=== PATIENT | female | born 1955 | race Caucasian/White ===

== ENCOUNTER 2024-02-23 11:55 | Emergency (ER) | payer OTHER, SELFPAY ==
[2024-02-23 11:58] VITALS: BP 146/74
[2024-02-23] MEDS: DUONEB 9 ML INH (13:22)
[2024-02-23] MEDS: DELTASONE 60 MG PO (13:22)
--- NOTE | 2024-02-23 14:47 | ED.GENMED ---
History of Present Illness
General
Chief Complaint: Breathing Problem
Time Seen by Provider: 02/23/24 12:46
History of Present Illness
History of Present Illness:
68-year-old female with history of COPD and history of psychosis presenting to the emergency department for difficulty breathing. Patient reports symptoms have been ongoing for several months. Denies any cough or fever. Denies any lower extremity
swelling. Denies any chest pain. She has been taking her inhaler. Denies any history of intubations. Denies additional acute medical complaints
Past History
Past History
ED Past Medical History: COPD and HTN
ED Past Surgical History: None
Social History
Tobacco: Smoker
Phy Exam
Physical Exam
Physical Exam:
General: Well-appearing, no clinical signs of dehydration, nontoxic and in no acute distress
HEENT: protecting airway
Neck: appears supple
CV: Normal heart rate, regular rhythm
Resp: No accessory muscle use, no increased work of breathing, lungs clear to auscultation bilaterally
Abd: Soft and non-distended, no tenderness to palpation, normal bowel sounds
Extremities: No deformities, no swelling, no erythema
Neuro: alert, no focal neurologic deficit
: deferred
Rectal: deferred
Psych: Normal affect
Skin: Intact
Scores
Heart Failure Risk
Heart Failure Risk Score: Not Applicable
Course
Orders/Labs/Results
Orders:
Orders
02/23/24 12:02
Electrocardiogram (*1) Urgent
Reason for Study: Shortness of Breath
EKG- Treatment ONCE
02/23/24 13:16
Ipratropium/Albuterol Sulfate [Duoneb] 9 ml INH R NOW ONE
Prednisone [Deltasone] 60 mg PO NOW STA
CR Chest - 2 Views Urgent
Comment:
Reason For Exam: sob
Vital Signs
Initial and Last Documented VS:
Initial Vital Signs
Temp Pulse Resp BP Pulse Ox
98.2 F 73 21 146/74 98
02/23/24 11:58 02/23/24 11:58 02/23/24 11:58 02/23/24 11:58 02/23/24 11:58
Last Documented Vital Signs
Temp Pulse Resp BP Pulse Ox
98.2 F 67 20 140/72 99
02/23/24 11:58 02/23/24 15:01 02/23/24 15:01 02/23/24 15:01 02/23/24 15:01
MDM/Problems Addressed
MDM/Problems Addressed:
68-year-old female with history of COPD and psychosis presenting for shortness of breath for several months. Vital signs on arrival are normal.
On exam patient is well-appearing, no increased work of breathing. She does have odor of tobacco, however denies active smoking. Suspect COPD as etiology of patient's symptoms. However lung exam is relatively benign, without significant wheezing,
moving adequate air. Possible bronchitis component. Lower suspicion for infectious pathology given duration of symptoms afebrile. Lower PE, reports compliance with her anticoagulation, normal heart rate, normal oxygenation. Will treat with
DuoNebs and steroids and reassess. Will chest x-ray imaging.
15:00- Chest x-ray without acute cardiopulmonary disease. On reassessment, remains hemodynamically stable, again normal oxygenation. Feel stable for just with close and for follow-up with rubberizing mechanic. Will start on steroid pack. Strict return
precautions communicated and patient verbalized understanding
*EKG
Interpreted by ED Provider?: Yes
EKG Intrepretation Date: 02/23/24
EKG Intrepretation Time: 14:49
Interpretation: normal
Comparison EKG: no changes
Heart Rate: 61
Rate: normal
Rhythm: sinus
[place]: normal axis
Interval: normal interval
QRS Pattern: normal QRS
Ischemia: no ischemia
*Critical Care Note
Total Time (30-74mins, 75-104mins- exclusive of procedures): Not Applicable
ED Attending Note
-
Portions of this chart may have been created with voice recognition software.� Occasional wrong word or��sound alike� substitutions may have occurred due to the inherent limitations of voice recognition software.
Discharge Plan
Departure
Patient Disposition: Home (Routine Discharge)
Date of Disposition: 02/23/24
Time of Disposition: 14:54
Patient with high blood pressure during this ER visit?: No
Condition: Good
Discharge Problem:
COPD (chronic obstructive pulmonary disease) with emphysema
Instructions: Shortness of Breath (Dyspnea) (DC), Exacerbation of COPD (DC)
Prescriptions:
New
prednisone 20 mg tablet
40 mg PO DAILY 4 Days Qty: 8 0RF
No Action
acetaminophen 325 MG tablet
650 mg PO Q4HPRN PRN (Reason: mild pain/BARTHOLOMEW/temp> 100.4F) 0RF
lisinopril 20 MG tablet
20 mg PO DAILY 0RF
olanzapine 10 MG tablet
10 mg PO HS 0RF
amlodipine 5 MG tablet
5 mg PO DAILY 0RF
olanzapine 2.5 MG tablet
2.5 mg PO Q6HPRN PRN (Reason: agitation) 0RF
rivaroxaban [Xarelto] 15 MG tablet
15 mg PO BID 0RF
Referrals:
Jesus Kaba MD [Family Provider] -
Activity Restrictions/Additional Instructions:
You were seen in the emergency department for shortness of breath
You were found to have emphysema, which is known to you. You were started on a steroid
Please follow-up closely with your primary care physician.
Return to the emergency department for any worsening of your symptoms, or any development of chest pain, difficulty breathing, abdominal pain with persistent vomiting and inability to tolerate food or liquid by mouth (concern for dehydration),
weakness, headache or confusion, fever greater than 100.4, or any additional symptoms that are concerning to you.
Thank you for choosing [facility].
Interventions
Interventions:
*Risk Screen - Suicide Last Done: 02/23/24 12:24
*General Assessment Last Done: 02/23/24 12:24
*Neglect/Abuse Screening Last Done: 02/23/24 12:24
ED- Fall Risk Assessment Last Done: 02/23/24 12:24
*Nursing Disposition Last Done: 02/23/24 15:02
ED- Cardiac Assessment Last Done: 02/23/24 12:24
ED- Pulmonary Assessment Last Done: 02/23/24 12:24
Discharge Date and Time
Print Language: GIBRALTARIAN
[2024-02-23 15:01] VITALS: BP 140/72
== END 2024-02-23 15:50 | disposition home or self-care (01) ==
LOC: EMR 11:55
PROVIDERS: EMERGENCY PHYSICIAN Student in an Organized Health Care Education/Training Program; FAMILY PHYSICIAN Internal Medicine
DX: J44.9 Chronic obstructive pulmonary disease, unspecified (principal); J43.9 Emphysema, unspecified; F17.200 Nicotine dependence, unspecified, uncomplicated
CPT/HCPCS: 99284; 94640; 71046; 93005

== ENCOUNTER 2024-04-03 12:26 | Emergency (ER) | payer MEDICARE, SELFPAY ==
[2024-04-03 12:32] VITALS: BP 129/71; BMI 25.8
[2024-04-03 12:55] LABS: % Basophils 0.5 % (0-2); % Immature Granulocytes 0.5 % (0-0.5); % Monocytes 7.4 % (1.7-9.3); % Neutrophils 62.6 % (42.2-75.2); Absolute Eosinophils 0.2 10^3/uL (0-0.7); Absolute Lymphocytes 2.1 10^3/uL (1.2-3.4); Absolute Monocytes 0.6 10^3/uL (0.1-0.6); Absolute Neutrophils 4.7 10^3/uL (1.4-6.5); Hematocrit 44.3 % (37.0-47.0); Hemoglobin 14.8 g/dL (12.0-16.0); Mean Corp Hgb Conc. 33.4 g/dL (33.0-37.0); Mean Corpuscular Hgb 27.4 pg (27.0-31.0); Mean Corpuscular Volume 81.9 fL (81.0-99.0); Mean Platelet Volume 12.2 fL (7.4-10.4); Nucleated Red Blood Cells % 0 %; Platelet Count 248 10^3/uL (130-400); Red Blood Cell Count 5.41 10^6/uL (4.20-5.40); Red Cell Dist. Width 14.6 % (11.5-14.5); White Blood Cell Count 7.6 10^3/uL (4.8-10.8)
[2024-04-03 13:07] LABS: ALT (SGPT) 25 U/L (0-35); AST (SGOT) 21 U/L (14-36); Albumin 4.9 g/dl (3.5-5.0); Alkaline Phosphatase 135 U/L (38-126); Blood Urea Nitrogen 14 mg/dl (7-17); Calcium 10.3 mg/dl (8.4-10.2); Carbon Dioxide 23 mmol/L (22-30); Chloride 102 mmol/L (98-107); Estimated Creatinine Clearance 48 ml/min; Glucose 129 mg/dl (70-99); Potassium 4.4 mmol/L (3.5-5.1); Sodium 138 mmol/L (135-145); Total Bilirubin 0.8 mg/dl (0.2-1.3); Total Protein 7.5 g/dl (6.3-8.2); eGFR > 60.00
[2024-04-03 13:19] LABS: Troponin I < 0.012 ng/ml
[2024-04-03 13:25] VITALS: BP 136/64
[2024-04-03 14:00] VITALS: BP 120/72
--- NOTE | 2024-04-03 15:09 | ED.GENMED ---
History of Present Illness
General
Chief Complaint: Breathing Problem
Source: patient
Exam Limitations: none
Time Seen by Provider: 04/03/24 14:55
History of Present Illness
History of Present Illness:
68-year-old female with history of COPD, pulmonary embolism on Xarelto presents with chest pain and shortness of breath onset last night. She has not missed any doses of her Xarelto. The discomfort is sharp in nature to the center of her chest not
pleuritic. She does note associated shortness of breath. No leg swelling or calf pain. She denies a cough. No other complaints at this time. She has a history of anxiety and ran out of her Ativan 2 weeks ago.
Past History
Past History
ED Past Medical History: COPD and HTN
ED Past Surgical History: None
Social History
Tobacco: Smoker
Phy Exam
Physical Exam
Physical Exam:
General: Well-appearing female no acute respiratory distress
HEENT: Normocephalic atraumatic
Heart: Regular rate and rhythm
Lungs: Clear no obvious wheeze or rales
Abdomen: Soft nontender nondistended no guarding rebound normal bowel sounds
Extremities: No cyanosis or edema.
Skin is warm no rash
Scores
Heart Failure Risk
Heart Failure Risk Score: Not Applicable
Course
Orders/Labs/Results
Orders:
Orders
04/03/24 12:31
Electrocardiogram (*1) Urgent
Reason for Study: Shortness of Breath
EKG- Treatment ONCE
04/03/24 12:45
Complete Blood Count/With Diff Urgent
Comprehensive Metabolic Panel Urgent
Troponin I Urgent
04/03/24 12:46
Chest [CR Chest - 2 Views ] Urgent
Comment:
Reason For Exam: sob
04/03/24 15:04
Ipratropium/Albuterol Sulfate [Duoneb] 3 ml INH R NOW ONE
Lorazepam [Ativan] 1 mg PO NOW STA
Abnormal Lab Results
04/03/24
12:45
RBC 5.41 H 10^6/uL
(4.20-5.40)
RDW 14.6 H %
(11.5-14.5)
MPV 12.2 H fL
(7.4-10.4)
Glucose 129 H mg/dl
(70-99)
Calcium 10.3 H mg/dl
(8.4-10.2)
Alkaline Phosphatase 135 H U/L
(38-126)
04/03/24 12:45
04/03/24 12:45
Vital Signs
Initial and Last Documented VS:
Initial Vital Signs
Pulse Resp BP Pulse Ox
61 18 129/71 98
04/03/24 12:32 04/03/24 12:32 04/03/24 12:32 04/03/24 12:32
Last Documented Vital Signs
Temp Pulse Resp BP Pulse Ox
98.7 F 75 18 145/68 98
04/03/24 16:22 04/03/24 16:22 04/03/24 16:22 04/03/24 16:22 04/03/24 16:22
MDM/Problems Addressed
Differential Diagnosis Includes:
Chest pain or shortness of breath. Consider ACS. Unlikely to be PE secondary to anticoagulated state. Vital signs are stable. Patient does appear anxious on exam. Of note patient ran out of her Ativan. She has a history of COPD as well.
Consider COPD flare. Will try DuoNeb check labs and x-ray. EKG shows sinus rhythm without ischemic changes.
*Critical Care Note
Total Time (30-74mins, 75-104mins- exclusive of procedures): Not Applicable
Update Note
Update Note:
Patient feeling better after breathing treatment and Ativan here. I suspect anxiety coupled with COPD. No evidence to suggest ACS. She is anticoagulated and likely does not have a PE. Patient request to go home. She is stable. Advise she
continue her breathing treatments at home
ED Attending Note
-
Portions of this chart may have been created with voice recognition software.� Occasional wrong word or��sound alike� substitutions may have occurred due to the inherent limitations of voice recognition software.
Discharge Plan
Departure
Patient Disposition: Home (Routine Discharge)
Date of Disposition: 04/03/24
Time of Disposition: 16:28
Patient with high blood pressure during this ER visit?: No
Discharge Problem:
Breath shortness
Instructions: Exacerbation of COPD (DC)
Prescriptions:
New
prednisone 20 mg tablet
40 mg PO DAILY 5 Days Qty: 10 0RF
No Action
acetaminophen 325 MG tablet
650 mg PO Q4HPRN PRN (Reason: mild pain/BARTHOLOMEW/temp> 100.4F) 0RF
lisinopril 20 MG tablet
20 mg PO DAILY 0RF
olanzapine 10 MG tablet
10 mg PO HS 0RF
amlodipine 5 MG tablet
5 mg PO DAILY 0RF
olanzapine 2.5 MG tablet
2.5 mg PO Q6HPRN PRN (Reason: agitation) 0RF
rivaroxaban [Xarelto] 15 MG tablet
15 mg PO BID 0RF
prednisone 20 mg tablet
40 mg PO DAILY 4 Days Qty: 8 0RF
Referrals:
Jesus Kaba MD [Family Provider] -
Activity Restrictions/Additional Instructions:
Continue with breathing treatments. Use steroid as directed. Return if worse otherwise follow-up with your doctor
Interventions
Interventions:
*Risk Screen - Suicide Last Done: 04/03/24 12:32
*General Assessment Last Done: 04/03/24 12:32
*Neglect/Abuse Screening Last Done: 04/03/24 12:32
*ED COVID-19 Vaccine History Last Done: 04/03/24 12:32
ED- Cardiac Assessment Last Done: 04/03/24 12:32
ED- Pulmonary Assessment Last Done: 04/03/24 12:32
Discharge Date and Time
Print Language: SYRIAN
[2024-04-03] MEDS: DUONEB 3 ML INH (15:20)
[2024-04-03] MEDS: ATIVAN 1 MG PO (15:21)
[2024-04-03 16:22] VITALS: BP 145/68
== END 2024-04-03 16:46 | disposition home or self-care (01) ==
LOC: EMR 12:26
PROVIDERS: Emergency Medicine; EMERGENCY PHYSICIAN Emergency Medicine; FAMILY PHYSICIAN Internal Medicine
DX: R07.89 Other chest pain (principal); R06.02 Shortness of breath; J44.9 Chronic obstructive pulmonary disease, unspecified; F41.9 Anxiety disorder, unspecified; I10 Essential (primary) hypertension; F17.200 Nicotine dependence, unspecified, uncomplicated; Z79.01 Long term (current) use of anticoagulants; Z86.711 Personal history of pulmonary embolism
CPT/HCPCS: 99283; 94640; 71046; 80053; 84484; 85025; 93005

== ENCOUNTER 2024-05-16 07:07 | Emergency (ER) | payer MEDICARE, SELFPAY ==
[2024-05-16 07:11] VITALS: BP 152/69; BMI 23.1
[2024-05-16 07:30] VITALS: BP 128/78
[2024-05-16] MEDS: DECADRON 10 MG IV (07:36)
[2024-05-16] MEDS: DUONEB 3 ML INH (07:36)
[2024-05-16 07:40] LABS: % Basophils 0.5 % (0-2); % Eosinophils 1.7 % (0-6); % Immature Granulocytes 0.4 % (0-0.5); % Lymphocytes 27.5 % (20.5-51.1); % Monocytes 8.8 % (1.7-9.3); % Neutrophils 61.1 % (42.2-75.2); Absolute Eosinophils 0.1 10^3/uL (0-0.7); Absolute Lymphocytes 2.2 10^3/uL (1.2-3.4); Absolute Monocytes 0.7 10^3/uL (0.1-0.6); Absolute Neutrophils 4.9 10^3/uL (1.4-6.5); Hematocrit 43.9 % (37.0-47.0); Hemoglobin 14.6 g/dL (12.0-16.0); Mean Corp Hgb Conc. 33.3 g/dL (33.0-37.0); Mean Corpuscular Hgb 27.4 pg (27.0-31.0); Mean Corpuscular Volume 82.5 fL (81.0-99.0); Mean Platelet Volume 12.4 fL (7.4-10.4); Nucleated Red Blood Cells % 0 %; Platelet Count 162 10^3/uL (130-400); Red Blood Cell Count 5.32 10^6/uL (4.20-5.40); Red Cell Dist. Width 14.4 % (11.5-14.5); White Blood Cell Count 8.1 10^3/uL (4.8-10.8)
--- NOTE | 2024-05-16 07:43 | ED.GENMED ---
History of Present Illness
General
Chief Complaint: Breathing Problem
Source: patient
Exam Limitations: none
Time Seen by Provider: 05/16/24 07:09
Nursing documentation reviewed up to this point in time: agreed with
History of Present Illness
History of Present Illness:
68-year-old female past medical history of COPD previous PE currently anticoagulated, hypertension hyperlipidemia presenting to the emergency department today with concerns chest pain shortness of breath that started this morning upon awakening.
She has missed some doses of Xarelto in the past missed a dose last night as well. She took a baby aspirin via EMS en route. Denies any nausea vomiting fevers or recent illness.
Past History
Past History
ED Past Medical History: COPD and HTN
ED Past Surgical History: None
Social History
Tobacco: Smoker
Review of Systems
Review of Systems
Allergies reviewed?: Yes
All Other Systems: ROS reviewed and negative except as documented in HPI and ROS
Phy Exam
Physical Exam
Physical Exam:
GENERAL: Alert , in no apparent distress
EYE: pupils equal and reactive
NECK: Supple, no significant adenopathy.
ENT: o/p clr, mmm.
CARDIAC: Regular rate and rhythm .
LUNGS: End expiratory wheeze with forced exhalation clear breath sounds bilaterally, no acute respiratory distress,
ABDOMEN: Soft, without focal tenderness, no r/g, no cvat
NEUROLOGICAL: Alert and oriented, no focal neuro deficits
SKIN: Warm and dry, skin intact.
MUSCULOSKELETAL: No edema, well perfused.
PSYCH: Normal and appropriate interaction.
Scores
Heart Failure Risk
Heart Failure Risk Score: Not Applicable
Course
Orders/Labs/Results
Orders:
Orders
05/16/24 07:08
Electrocardiogram (*1) Urgent
Reason for Study: Other
Other Reason for Exam: Respiratory Distress
EKG- Treatment ONCE
CR Chest - 2 Views Urgent
Comment:
Reason For Exam: respiratory distress
05/16/24 07:26
Basic Metabolic Panel Urgent
COVID-19 Antigen Urgent
Source: Nasal Swab
Complete Blood Count/With Diff Urgent
NT-proBNP Urgent
Troponin I Urgent
Influenza A+B Rapid Molecular Urgent
ESTER Source: Nasal Swab
Specimen Description:
05/16/24 07:31
Dexamethasone Sod Phosphate [Decadron] 10 mg IV NOW STA
Ipratropium/Albuterol Sulfate [Duoneb] 3 ml INH R NOW ONE
05/16/24 07:35
D-Dimer Urgent
Abnormal Lab Results
05/16/24
07:26
MPV 12.4 H fL
(7.4-10.4)
Absolute Monos (auto) 0.7 H 10^3/uL
(0.1-0.6)
Carbon Dioxide 21 L mmol/L
(22-30)
05/16/24 07:26
05/16/24 07:26
Vital Signs
Initial and Last Documented VS:
Initial Vital Signs
Temp Pulse Resp BP Pulse Ox
97.3 F 58 16 152/69 98
05/16/24 07:11 05/16/24 07:11 05/16/24 07:11 05/16/24 07:11 05/16/24 07:11
Last Documented Vital Signs
Temp Pulse Resp BP Pulse Ox
97.3 F 65 19 134/66 95
05/16/24 07:11 05/16/24 09:53 05/16/24 09:53 05/16/24 09:53 05/16/24 10:15
MDM/Problems Addressed
MDM/Problems Addressed:
68-year-old female presenting to the emergency department today with concerns of chest pain shortness of breath over the past few hours. History of PEs does miss her Xarelto dose often missed her dose last night. Also does not very slight
expiratory wheezing did describe some wheezing earlier today. Will start on DuoNeb as well as given steroids as she does have a history of COPD. Otherwise initial pulse ox off of oxygen according to the nurse did drop into the 80s she was started
on 2 L nasal cannula with pulse ox of 98. Here she was given a DuoNeb as well as prednisone and appear to be having significant improvement while here. The remainder of the workup including troponin and BNP labs chest x-ray without emergent
findings. Patient was walked in the ER to walk with normal pulse ox and did not appear short of breath. She does appear stable for outpatient management return precautions given.
*Critical Care Note
Total Time (30-74mins, 75-104mins- exclusive of procedures): Not Applicable
ED Attending Note
-
Portions of this chart may have been created with voice recognition software.� Occasional wrong word or��sound alike� substitutions may have occurred due to the inherent limitations of voice recognition software.
Discharge Plan
Departure
Patient Disposition: Home (Routine Discharge)
Date of Disposition: 05/16/24
Time of Disposition: 10:47
Patient with high blood pressure during this ER visit?: No
Condition: Good
Covid-19: Not Applicable
Discharge Problem:
COPD exacerbation
Instructions: Chronic obstructive pulmonary disease (COPD)
Prescriptions:
New
prednisone 20 mg tablet
40 mg PO DAILY 4 Days Qty: 8 0RF
albuterol sulfate 90 mcg/actuation aerosol powdr breath activated
2 inh inhalation Q6H PRN (Reason: shortness of breath or wheezing) Qty: 1 0RF
No Action
acetaminophen 325 MG tablet
650 mg PO Q4HPRN PRN (Reason: mild pain/BARTHOLOMEW/temp> 100.4F) 0RF
lisinopril 20 MG tablet
20 mg PO DAILY 0RF
olanzapine 10 MG tablet
10 mg PO HS 0RF
amlodipine 5 MG tablet
5 mg PO DAILY 0RF
olanzapine 2.5 MG tablet
2.5 mg PO Q6HPRN PRN (Reason: agitation) 0RF
rivaroxaban [Xarelto] 15 MG tablet
15 mg PO BID 0RF
prednisone 20 mg tablet
40 mg PO DAILY 4 Days Qty: 8 0RF
prednisone 20 mg tablet
40 mg PO DAILY 5 Days Qty: 10 0RF
Referrals:
Jesus Kaba MD [Family Provider] -
Activity Restrictions/Additional Instructions:
You came to the emergency department today with concerns of shortness of breath. Here you have a reassuring assessment. Please take the prescribed medications for likely COPD exacerbation. Please follow closely with your primary care doctor
within 1 week. Return to the emergency department for any worsening, new or concerning symptoms.
Interventions
Interventions:
*Risk Screen - Suicide Last Done: 05/16/24 07:11
*General Assessment Last Done: 05/16/24 07:11
*Neglect/Abuse Screening Last Done: 05/16/24 07:11
ED- Fall Risk Assessment Last Done: 05/16/24 07:18
*ED COVID-19 Vaccine History Last Done: 05/16/24 07:11
ED- Cardiac Assessment Last Done: 05/16/24 07:18
ED- Pulmonary Assessment Last Done: 05/16/24 07:18
Discharge Date and Time
Print Language: [place]
[2024-05-16 07:50] LABS: COVID-19 Antigen Negative (Negative)
--- NOTE | 2024-05-16 07:53 | EDRN ---
this RN and Vesta RN were at the pts bedside, PIV placed, labs drawn and sent, the pts Sp02 on RA was 96% however the pt kept stating to this RN, 'I can't breathe, I can't breathe i have having a hard time breathing', this RN attempted to calm
the pt down and talked the pt through deep breathing and placed the pt on 2L NC for comfort, the pt is currently 98%, the pt stated that she needed to use the bathroom and this RN and Vesta RN educated the pt on not getting out of bed due to the
provider not wanting the pt out of bed, the pt was agreeable to a bed luo, the pt was placed on a bed luo and did not have a bowel movement and did not urinate, the pt was repositioned in stretcher for comfort, the pt is resting in stretcher in the
lowest position, side rails up x2, call ty within reach, HOB elevated, breathing treatment running, will continue to monitor the pt closely
--- NOTE | 2024-05-16 07:55 | EDRN ---
the pt pressed the call ty and this RN entered the pts room, the pt stated to this RN, 'I can't breathe, I can't breathe, and i need to go to the bathroom let me up', this RN notified the pt that her Sp02 was 98% and this RN educated the pt that
she was on oxygen for comfort and this RN talked the pt through deep breathing to calm the pt down, the pt is not tachypnic, the pt is in NSR, no s/s of distress noted at this time, the pt is agreeable to using the bed luo, this RN placed the pt on
the bed luo and the pt was not able to go, the pt stated to this RN, 'Take me off of this thing i don't need go to', the pt was taken off of the bedpan, the pt is resting in stretcher in the lowest position, side rails up x2, call ty within reach,
HOB elevated, no s/s of distress, will continue to monitor the pt closely
[2024-05-16 07:56] LABS: Blood Urea Nitrogen 10 mg/dl (7-17); Carbon Dioxide 21 mmol/L (22-30); Chloride 103 mmol/L (98-107); Estimated Creatinine Clearance 54 ml/min; Glucose 95 mg/dl (70-99); Sodium 139 mmol/L (135-145); eGFR > 60.00
[2024-05-16 07:59] LABS: D-Dimer 0.33 ug/mlFEU (0.00-0.50)
[2024-05-16 08:00] VITALS: BP 113/62
[2024-05-16 08:06] LABS: NT-proBNP 408 pg/ml; Troponin I < 0.012 ng/ml
--- NOTE | 2024-05-16 08:22 | EDRN ---
the pt arrived back from xray and this RN placed the pt back on quality assurance monitor, Sp02 monitor, and BP cuff, the pt arrived from xray on her phone with someone and stated to this RN, 'Why aren't you helping me, i can't breathe and you're just
ignoring it', this RN notified the pt that she is on 2L of 02 and is 98%, the pt is not tachypnic, RR 18, no s/s of distress, the pt is NSR in the 70's, the pt stated to this RN, 'My friend what's to know how you're going to help me', this RN
notified Marvin Lowe who came to the pts bedside, the pt is resting in stretcher in the lowest position, side rails up x2, call ty within reach, HOB elevated, will continue to monitor the pt closely
--- NOTE | 2024-05-16 08:26 | EDRN ---
the pt pressed the call ty and this RN entered the pts room, the pt stated to this RN, 'Put the head of my bed down', this RN lowered the pts head of the bed until she stated she was comfortable, this RN asked the pt if she needed anything else at
this time and the pt denies needing anything, will continue to monitor the pt closely
--- NOTE | 2024-05-16 08:55 | EDRN ---
this RN noticed that the pts BP did not recycle, this RN entered the pts room and the pt is currently sleeping, Sp02 noted to be 91% on 2L NC while sleeping, provider Marvin REAL notified, RR 20, no s/s of distress noted, will continue to monitor
the pt closely
[2024-05-16 09:35] VITALS: BP 134/66
--- NOTE | 2024-05-16 09:39 | EDRN ---
the pt pressed the call ty and this RN entered the pts room, the pt stated to this RN, 'I need the bedpan i need to pee', this RN educated the pt on the use of the pure wick and the pt was agreeable to using it, this RN placed the pure wick for
the pt, the pt also asked for her head of bed to be lowered, this RN lowered the pts head of bed, will continue to monitor the pt closely
--- NOTE | 2024-05-16 09:52 | EDRN ---
Marvin REAL currently at the pts bedside
[2024-05-16 09:53] VITALS: BP 134/66
--- NOTE | 2024-05-16 09:57 | EDRN ---
per the provider Ed Mynor REAL, 2L NC was removed and the pts Sp02 remains 98%
--- NOTE | 2024-05-16 10:02 | EDRN ---
per the provider the pt is able to ambulate to the bathroom to urinate, the pt was able to ambulate to the bathroom and back to the stretcher with no issues
--- NOTE | 2024-05-16 10:07 | EDRN ---
per the provider this RN ambulated with the pt on RA with Sp02 monitor on and the pt was able to ambulate with no issues and the pts Sp02 remained 94-98%, provider Marvin REAL was notified
[2024-05-16 11:23] VITALS: BP 136/71
== END 2024-05-16 11:24 | disposition home or self-care (01) ==
LOC: EMR 07:07
PROVIDERS: Physician Assistant; EMERGENCY PHYSICIAN Student in an Organized Health Care Education/Training Program; FAMILY PHYSICIAN Internal Medicine
DX: J44.1 Chronic obstructive pulmonary disease with (acute) exacerbation (principal); Z11.52 Encounter for screening for COVID-19; T45.516A Underdosing of anticoagulants, initial encounter; Z91.148 Patient's other noncompliance with medication regimen for other reason; I10 Essential (primary) hypertension; E78.5 Hyperlipidemia, unspecified; F41.9 Anxiety disorder, unspecified; F32.A Depression, unspecified; F17.200 Nicotine dependence, unspecified, uncomplicated; Z86.711 Personal history of pulmonary embolism; Z88.1 Allergy status to other antibiotic agents; Z88.2 Allergy status to sulfonamides
CPT/HCPCS: 99284; 96374; 94640; 71046; 80048; 83880; 84484; 85025; 85379; 87502; 87811; 93005